=== PATIENT | male | born 1945 | race Caucasian/White ===

== ENCOUNTER 2018-10-24 18:53 | Emergency (ER) | payer MEDICARE ==
[2018-10-24] MEDS ORDERED: HYDROcodone/Acetaminophen 5/325 mg Tablet ONE (19:55)
--- NOTE | 2018-10-24 20:13 | RAD ---
Exam: Single view of the pelvis HISTORY: Right leg and hip pain COMPARISON: None FINDINGS: A single view the pelvis shows no evidence of acute fracture or dislocation. No degenerativ e changes seen in either hip. IMPRESSION: No evidence of acute osseous abnormality.
[2018-10-24 20:14] LABS: #Basophils 0.1 thou/uL (0.0-0.2); #Eosinphils 0.3 thou/uL (0.0-0.7); #Monocytes 0.5 thou/uL (0.11-0.59); #Neutrophils 3.6 thou/uL (1.40-6.50); %Basophils 0.9 % (0.0-1.0); %Eosinophils 5.2 % (0.0-10.0); %Lymphocytes 18.3 % (21.0-51.0); %Monocytes 9.2 % (0.0-10.0); %Neutrophils 66.4 % (42.0-75.0); Hemoglobin 14.3 g/dL (14.0-18.0); Mean Corpuscular HGB CONC 35.2 g/dL (32.0-36.0); Mean Corpuscular Hemoglobin 33.5 pg (27.0-31.0); Mean Corpuscular Volume 95.1 fL (78.0-98.0); Mean Platelet Volume 7.6 fL (7.4-10.4); Platelet Count 197 thou/uL (130-400); RBC Distribution Width 11.9 % (11.5-14.5); Red Blood Cell (RBC) Count 4.27 mill/uL (4.70-6.10); White Blood Cell (WBC) Count 5.5 thou/uL (4.8-10.8)
[2018-10-24 20:37] LABS: ALT (SGPT) 30 U/L (8-55); AST (SGOT) 23 U/L (5-34); Albumin 3.7 g/dL (3.4-4.8); Alkaline Phosphatase 59 U/L (40-150); Anion Gap 13 mmol/L (10-20); BUN (Urea Nitrogen) 24 mg/dL (8.4-25.7); Bilirubin, Total 0.4 mg/dL (0.2-1.2); Calc. Creatinine Clearance 0 mL/min (70-130); Calcium 8.9 mg/dL (7.8-10.44); Carbon Dioxide 23 mmol/L (23-31); Chloride 102 mmol/L (98-107); Estimated GFR-MDRD 34; Globulin 2.9 g/dL (2.4-3.5); Glucose 90 mg/dL (83-110); Potassium 3.9 mmol/L (3.5-5.1); Protein, Total 6.6 g/dL (5.8-8.1); Sodium 134 mmol/L (136-145)
--- NOTE | 2018-10-24 21:08 | ULT ---
EXAM: Right lower extremity venous ultrasound HISTORY: Right knee pain and edema COMPARISON: None TECHNIQUE: Multiplanar grayscale and color Doppler images were obtained in a right lower extremity ve nous ultrasound. Spectral analysis of the Doppler waveforms were performed. FINDINGS: The common femoral vein, profunda femoral vein, superficial femoral vein, and popliteal vei n are normal in appearance without visible thrombus. These vessels demonstrate normal compression, flow, and augmentation. The posterior tibial vein and greater saphenous vein are patent without evidence of thrombus. IMPRESSION: No evidence of DVT.
== END 2018-10-24 22:10 | disposition home or self-care (01) ==
LOC: ERS 18:53
DX: M54.31 Sciatica, right side (principal); I49.9 Cardiac arrhythmia, unspecified; I10 Essential (primary) hypertension; F41.9 Anxiety disorder, unspecified; F32.9 Major depressive disorder, single episode, unspecified; F17.220 Nicotine dependence, chewing tobacco, uncomplicated; Z79.899 Other long term (current) drug therapy
CPT/HCPCS: 36415; 72170; 80053; 85025; 85379

== ENCOUNTER 2018-11-25 15:37 | Emergency (ER) | payer MEDICARE ==
[~2018-11-25 15:37] MED LIST: ISOVUE-370 76%-LOCM 1 ML ONE
[2018-11-25] MEDS ORDERED: Ondansetron ODT 4 MG TAB ONE (16:10)
[2018-11-25 17:23] LABS: #Eosinphils 0.1 thou/uL (0.0-0.7); #Lymphocytes 0.8 thou/uL (1.20-3.40); #Monocytes 0.6 thou/uL (0.11-0.59); #Neutrophils 6.7 thou/uL (1.40-6.50); %Basophils 0.2 % (0.0-1.0); %Eosinophils 1.7 % (0.0-10.0); %Lymphocytes 9.8 % (21.0-51.0); %Neutrophils 81.4 % (42.0-75.0); Hemoglobin 15.1 g/dL (14.0-18.0); Mean Corpuscular HGB CONC 34.2 g/dL (32.0-36.0); Mean Corpuscular Hemoglobin 32.9 pg (27.0-31.0); Mean Corpuscular Volume 96.2 fL (78.0-98.0); Mean Platelet Volume 7.5 fL (7.4-10.4); Platelet Count 184 thou/uL (130-400); RBC Distribution Width 11.9 % (11.5-14.5); Red Blood Cell (RBC) Count 4.59 mill/uL (4.70-6.10); White Blood Cell (WBC) Count 8.2 thou/uL (4.8-10.8)
[2018-11-25 18:08] LABS: ALT (SGPT) 37 U/L (8-55); AST (SGOT) 33 U/L (5-34); Albumin 3.8 g/dL (3.4-4.8); Alkaline Phosphatase 59 U/L (40-110); Anion Gap 14 mmol/L (10-20); BUN (Urea Nitrogen) 17 mg/dL (8.4-25.7); Bilirubin, Total 0.5 mg/dL (0.2-1.2); Calc. Creatinine Clearance 0 mL/min (70-130); Calcium 9.3 mg/dL (7.8-10.44); Carbon Dioxide 24 mmol/L (23-31); Chloride 104 mmol/L (98-107); Estimated GFR-MDRD 45; Globulin 3.7 g/dL (2.4-3.5); Glucose 137 mg/dL (83-110); Lipase 9 U/L (8-78); Potassium 4.4 mmol/L (3.5-5.1); Protein, Total 7.5 g/dL (5.8-8.1); Sodium 138 mmol/L (136-145)
--- NOTE | 2018-11-25 18:57 | CT ---
CT Abdomen Pelvis W Con History: Abdominal pain Comparison: None. Findings: There is a nodule in the posterior segment right lower lobe measuring up to 8 mm. Mild atel ectasis in the lower lobes. No pericardial effusion. Mild proximal small bowel mesenteric edema with lymph node enlargement. The ureters are very patulous bilaterally as well as both renal pelvis by. Urinary bladder wall is ma rkedly thickened and irregular with focal thinning near the bladder dome. No dilated loops of large or small bowel. No acute osseous abnormality. Fusion of the L5/S1 disc. Tra nsverse processes are intact. Impression: 1. Moderate proximal small bowel mesenteric edema as well as lymph node enlargement is very nonspecif ic and can be seen with chronic mesenteric panniculitis, sclerosing mesenteritis, and treated lymphoma. 2. Very patulous renal collecting systems within the calyces, pelvi, and ureters enlarged with a very trabeculated thickened distended urinary bladder suggests chronic bladder outlet obstruction and reflux. 3. 8 millimeter nodule posterior segment right lower lobe. Follow-up CT of the chest in 3 months aris mmended.
[2018-11-25] MEDS ORDERED: Ondansetron PF 4 MG/2 ML Vial ONE (19:13)
== END 2018-11-25 19:20 | disposition home or self-care (01) ==
LOC: ERS 15:37
DX: E86.0 Dehydration (principal); R11.2 Nausea with vomiting, unspecified; I49.9 Cardiac arrhythmia, unspecified; I10 Essential (primary) hypertension; F41.9 Anxiety disorder, unspecified; F32.9 Major depressive disorder, single episode, unspecified; F17.220 Nicotine dependence, chewing tobacco, uncomplicated; Z79.01 Long term (current) use of anticoagulants; Z79.899 Other long term (current) drug therapy
CPT/HCPCS: 36415; 74177; 80053; 83690; 85025; 96361; 96374; J2405; Q0162; Q9966

== ENCOUNTER 2019-01-07 16:41 | Emergency (ER) | payer MEDICARE ==
[2019-01-07 17:28] LABS: #Eosinphils 0.3 thou/uL (0.0-0.7); #Lymphocytes 0.8 thou/uL (1.20-3.40); #Monocytes 0.5 thou/uL (0.11-0.59); #Neutrophils 2.6 thou/uL (1.40-6.50); %Basophils 0.8 % (0.0-1.0); %Eosinophils 6.3 % (0.0-10.0); %Monocytes 12.8 % (0.0-10.0); %Neutrophils 61.1 % (42.0-75.0); Hemoglobin 13.3 g/dL (14.0-18.0); Mean Corpuscular HGB CONC 34.3 g/dL (32.0-36.0); Mean Corpuscular Hemoglobin 32.6 pg (27.0-31.0); Mean Platelet Volume 7.3 fL (7.4-10.4); Platelet Count 161 thou/uL (130-400); RBC Distribution Width 11.9 % (11.5-14.5); White Blood Cell (WBC) Count 4.3 thou/uL (4.8-10.8)
[2019-01-07 17:52] LABS: ALT (SGPT) 25 U/L (8-55); AST (SGOT) 21 U/L (5-34); Albumin 3.5 g/dL (3.4-4.8); Alkaline Phosphatase 61 U/L (40-110); Anion Gap 9 mmol/L (10-20); BUN (Urea Nitrogen) 18 mg/dL (8.4-25.7); Bilirubin, Total 0.4 mg/dL (0.2-1.2); Calc. Creatinine Clearance 0 mL/min (70-130); Calcium 8.7 mg/dL (7.8-10.44); Carbon Dioxide 26 mmol/L (23-31); Chloride 104 mmol/L (98-107); Estimated GFR-MDRD 51; Globulin 2.8 g/dL (2.4-3.5); Glucose 114 mg/dL (83-110); Potassium 3.9 mmol/L (3.5-5.1); Protein, Total 6.3 g/dL (5.8-8.1); Sodium 135 mmol/L (136-145)
[2019-01-07] MEDS ORDERED: Meclizine HCl 25 MG TAB ONE ×2 (18:07→18:09)
--- NOTE | 2019-01-07 18:59 | CT ---
CT BRAIN NONCONTRAST: DATE: 01/07/2019 HISTORY: 73-year-old male with dizziness and lightheadedness. Status post fall. FINDINGS: There is no evidence of acute intra-axial or extra-axial hemorrhage. There is no midline shift or any other mass effect. There is no extra-axial fluid collection. There is no evidence of obstructive hydrocephalus. Calvarium is intact. IMPRESSION: No acute intracranial findings.
[2019-01-07 20:15] LABS: Bilirubin Negative (Negative); Blood, Urine Negative (Negative); Clarity Clear (Clear); Glucose, Urine (Dipstick) Normal (Negative); Leukocyte 250 Leu/uL (Negative); Nitrite 2+ (Negative); Protein, Urine (Dipstick) Negative (Neg-Trace); RBC/HPF 0-3 HPF (0-3); Squamous Epithelial 0-3 HPF (0-3); Urobilinogen Normal mg/dL (Less than 2)
[2019-01-07 20:28] LABS: Bacteria/HPF 2+ HPF (None Seen); Yeast-Budding None Seen HPF (None Seen)
== END 2019-01-07 21:00 | disposition home or self-care (01) ==
LOC: ERS 16:41
DX: H81.13 Benign paroxysmal vertigo, bilateral (principal); N39.0 Urinary tract infection, site not specified; I49.9 Cardiac arrhythmia, unspecified; I10 Essential (primary) hypertension; F41.9 Anxiety disorder, unspecified; F32.9 Major depressive disorder, single episode, unspecified; F17.220 Nicotine dependence, chewing tobacco, uncomplicated; Z79.899 Other long term (current) drug therapy; Z79.01 Long term (current) use of anticoagulants
CPT/HCPCS: 36415; 70450; 80053; 81003; 81015; 85025; 93005; 96360; 96361; J8597

== ENCOUNTER 2019-04-09 09:57 | Emergency (ER) | payer MEDICARE ==
[2019-04-09 12:20] LABS: #Eosinphils 0.2 thou/uL (0.0-0.7); #Lymphocytes 0.5 thou/uL (1.20-3.40); #Monocytes 0.6 thou/uL (0.11-0.59); %Basophils 0.4 % (0.0-1.0); %Eosinophils 3.4 % (0.0-10.0); %Lymphocytes 9.8 % (21.0-51.0); %Monocytes 11.5 % (0.0-10.0); %Neutrophils 74.9 % (42.0-75.0); Hemoglobin 12.7 g/dL (14.0-18.0); Mean Corpuscular HGB CONC 34.1 g/dL (32.0-36.0); Mean Corpuscular Hemoglobin 32.3 pg (27.0-31.0); Mean Corpuscular Volume 94.7 fL (78.0-98.0); Mean Platelet Volume 7.6 fL (7.4-10.4); Platelet Count 144 thou/uL (130-400); RBC Distribution Width 12.5 % (11.5-14.5); Red Blood Cell (RBC) Count 3.95 mill/uL (4.70-6.10); White Blood Cell (WBC) Count 5.3 thou/uL (4.8-10.8)
--- NOTE | 2019-04-09 12:23 | RAD ---
XR Chest Pa Lat STANDARD HISTORY: Cough, congestion and headache COMPARISON: None FINDINGS: The heart size is normal. The lungs are well expanded without focal areas of consolidation, pneumothorax or pleural effusions. IMPRESSION: No radiographic evidence of acute cardiopulmonary process.
[2019-04-09 12:42] LABS: ALT (SGPT) 17 U/L (8-55); AST (SGOT) 16 U/L (5-34); Albumin 3.6 g/dL (3.4-4.8); Alkaline Phosphatase 61 U/L (40-110); Anion Gap 10 mmol/L (10-20); BUN (Urea Nitrogen) 22 mg/dL (8.4-25.7); Bilirubin, Total 0.4 mg/dL (0.2-1.2); Calc. Creatinine Clearance 0 mL/min (70-130); Calcium 8.8 mg/dL (7.8-10.44); Carbon Dioxide 28 mmol/L (23-31); Chloride 105 mmol/L (98-107); Estimated GFR-MDRD 44; Globulin 2.7 g/dL (2.4-3.5); Glucose 86 mg/dL (83-110); Potassium 4.1 mmol/L (3.5-5.1); Protein, Total 6.3 g/dL (5.8-8.1); Sodium 139 mmol/L (136-145)
== END 2019-04-09 12:46 | disposition home or self-care (01) ==
LOC: ERS 09:57
DX: R05 Cough (principal); I10 Essential (primary) hypertension; F41.9 Anxiety disorder, unspecified; F32.9 Major depressive disorder, single episode, unspecified; F17.220 Nicotine dependence, chewing tobacco, uncomplicated; Z79.01 Long term (current) use of anticoagulants; Z79.82 Long term (current) use of aspirin; Z79.899 Other long term (current) drug therapy
CPT/HCPCS: 36415; 71046; 80053; 85025; 87804

== ENCOUNTER 2019-11-01 13:33 | Inpatient (IN) | payer MEDICARE, MEDICAID, OTHER ==
[2019-10-29 15:06] VITALS: BMI 31.5
[2019-11-01 15:01] LABS: Bacteria/HPF 4+ HPF (None Seen); Bilirubin Negative (Negative); Blood, Urine Negative (Negative); Clarity Turbid (Clear); Glucose, Urine (Dipstick) Normal (Negative); Ketone, Urine Negative (Negative); Leukocyte 250 Leu/uL (Negative); Nitrite Negative (Negative); Protein, Urine (Dipstick) 10 mg/dL (Neg-Trace); RBC/HPF 0-3 HPF (0-3); Squamous Epithelial None Seen HPF (0-3); Urobilinogen Normal mg/dL (Less than 2); WBC/HPF Greater than 50 HPF (0-3); pH, Urine 7.5 (5.0-9.0)
[2019-11-01 15:02] LABS: #Eosinphils 0.2 thou/uL (0.0-0.7); #Lymphocytes 0.8 thou/uL (1.20-3.40); #Monocytes 0.5 thou/uL (0.11-0.59); #Neutrophils 3.1 thou/uL (1.40-6.50); %Eosinophils 4.8 % (0.0-10.0); %Monocytes 11.3 % (0.0-10.0); Hemoglobin 13.7 g/dL (14.0-18.0); Mean Corpuscular HGB CONC 33.6 g/dL (32.0-36.0); Mean Corpuscular Volume 98.1 fL (78.0-98.0); Mean Platelet Volume 8.6 fL (7.4-10.4); Platelet Count 151 thou/uL (130-400); RBC Distribution Width 11.9 % (11.5-14.5); Red Blood Cell (RBC) Count 4.15 mill/uL (4.70-6.10); White Blood Cell (WBC) Count 4.6 thou/uL (4.8-10.8)
[2019-11-01 15:03] LABS: Urine Culture Reflex Yes Yes
--- NOTE | 2019-11-01 15:27 | EKG ---
Test Reason : PREOP Blood Pressure : / mmHG Vent. Rate : 057 BPM Atrial Rate : 057 BPM P-R Int : 236 ms QRS Dur : 088 ms QT Int : 472 ms P-R-T Axes : 023 028 062 degrees QTc Int : 459 ms Sinus bradycardia with 1st degree A-V block Otherwise normal ECG No previous ECGs available Confirmed by JAIMEE MARIE M.D. ([id number] on 11/01/2019 3:27:28 PM Referred By: SEB Confirmed By:JAIMEE MARIE M.D.
[2019-11-01 15:43] LABS: Bacteria/HPF 4+ HPF (None Seen); Bilirubin Negative (Negative); Blood, Urine Negative (Negative); Clarity Turbid (Clear); Glucose, Urine (Dipstick) Normal (Negative); Ketone, Urine Negative (Negative); Leukocyte 500 Leu/uL (Negative); Nitrite Negative (Negative); Protein, Urine (Dipstick) Negative (Neg-Trace); RBC/HPF 0-3 HPF (0-3); Specific Gravity, Urine 1.008 (1.002-1.036); Squamous Epithelial 0-3 HPF (0-3); Urobilinogen Normal mg/dL (Less than 2); WBC/HPF Greater than 50 HPF (0-3); pH, Urine 7.5 (5.0-9.0)
[2019-11-01 15:44] LABS: Urine Culture Reflex Yes Yes
[2019-11-01] MEDS ORDERED: Bupivacaine PF 0.5% 30 ML VIAL ONE (16:13)
[2019-11-01] MEDS ORDERED: Bacitracin Zinc Ointment 30 gm TUBE ONE (16:13)
[2019-11-01] MEDS ORDERED: Fentanyl 100 MCG/2 ML VIAL ONE (16:35)
[2019-11-01] MEDS ORDERED: HYDROcodone/Acetaminophen 5/325 mg Tablet PO PRN (18:09)
[2019-11-01] MEDS ORDERED: Acetaminophen 325 MG TAB PO PRN (18:09)
[2019-11-01] MEDS ORDERED: Morphine 2 MG/ML VIAL SLOW IVP PRN (18:09)
[2019-11-01] MEDS ORDERED: Bisacodyl 10 MG SUPP PR PRN (18:09)
[2019-11-01] MEDS ORDERED: Vancomycin 1 GM in Premix Bag 1 BAG IVPB SCH (20:15)
[2019-11-01] MEDS: HYDROcodone/Acetaminophen 10/325 mg Tablet PO PRN (20:30)
[2019-11-01] MEDS: Aspirin 81 mg Enteric Coated Tablet PO SCH (20:32)
[2019-11-01] MEDS ORDERED: Gentamicin Sulfate 80 MG in Premix Bag 1 BAG IVPB SCH ×2 (20:45→22:45)
[2019-11-01] MEDS ORDERED: TETANUS AND DIPHTHERIA TOX/PF 0.5 ML DISP.SYRIN IM SCH (21:00)
[2019-11-01] MEDS: Sodium Chloride 0.9% 1,000 ML IV SCH (23:38)
[2019-11-01] MEDS: Sodium Chloride 0.9% 100 ML IV SCH ×2 (23:49→23:50)
[2019-11-02] MEDS: HYDROcodone/Acetaminophen 10/325 mg Tablet PO PRN ×3 (01:07→23:09)
[2019-11-02 05:46] LABS: Anion Gap 15 mmol/L (10-20); BUN (Urea Nitrogen) 22 mg/dL (8.4-25.7); Calc. Creatinine Clearance 51 mL/min (70-130); Calcium 8.4 mg/dL (7.8-10.44); Carbon Dioxide 22 mmol/L (23-31); Chloride 106 mmol/L (98-107); Estimated GFR-MDRD 38; Glucose 124 mg/dL (83-110); Potassium 4.8 mmol/L (3.5-5.1); Sodium 138 mmol/L (136-145)
[2019-11-02] MEDS: Gentamicin Sulfate 80 MG in Premix Bag 1 BAG IVPB SCH ×3 (06:00→20:41)
[2019-11-02] MEDS ORDERED: Vancomycin 1 GM in Premix Bag 1 BAG IVPB SCH (08:00)
[2019-11-02] MEDS: Aspirin 81 mg Enteric Coated Tablet PO SCH ×2 (08:22→20:40)
[2019-11-02] MEDS: Sodium Chloride 0.9% 1,000 ML IV SCH ×2 (08:45→18:59)
[2019-11-02 08:58] LABS: Bacteria/HPF 2+ HPF (None Seen); Bilirubin Negative (Negative); Blood, Urine 2+ (Negative); Clarity Extra Turbid (Clear); Glucose, Urine (Dipstick) Normal (Negative); Ketone, Urine Negative (Negative); Leukocyte 500 Leu/uL (Negative); Nitrite Negative (Negative); Protein, Urine (Dipstick) 50 mg/dL (Neg-Trace); RBC/HPF 21-50 HPF (0-3); Specific Gravity, Urine 1.009 (1.002-1.036); Squamous Epithelial None Seen HPF (0-3); Urobilinogen Normal mg/dL (Less than 2); WBC/HPF Greater than 50 HPF (0-3); pH, Urine 6.5 (5.0-9.0)
[2019-11-02] MEDS ORDERED: PROPOFOL 200 MG/20 ML VIAL ONE (09:01)
[2019-11-02] MEDS ORDERED: Lidocaine 1% PF 5 ML VIAL ONE (09:01)
[2019-11-02] MEDS ORDERED: PHENYLEPHRINE-NS 100 MCG/ML 10 ML SYRINGE ONE (09:01)
[2019-11-02] MEDS ORDERED: Dexamethasone 20 MG/5 ML VIAL ONE (09:01)
[2019-11-02] MEDS ORDERED: EPHEDRINE 25 MG/5 ML SYRINGE ONE (09:01)
[2019-11-02] MEDS ORDERED: Fentanyl 100 MCG/2 ML VIAL ONE ×2 (13:30)
[2019-11-02] MEDS ORDERED: Bupivacaine PF 0.5% 30 ML VIAL ONE (13:47)
[2019-11-02] MEDS ORDERED: Bacitracin Zinc Ointment 30 gm TUBE ONE (13:47)
[2019-11-02] MEDS ORDERED: Sodium Chloride 0.9% 10 ML ONE (13:48)
[2019-11-02] MEDS ORDERED: cefTRIAXone\\ROCEPHIN 1 GM VIAL ONE (14:46)
--- NOTE | 2019-11-02 17:47 | RAD ---
EXAM: RIGHT FINGER TWO VIEWS: 11/02/19 HISTORY: Status post ORIF. Small metal plate and screws have been placed stabilizing a displaced fracture through the base of th e distal phalanx of the fourth finger. Improved position and alignment. IMPRESSION: Improved position and alignment following metal plate and screw placement stabilizing the distal phal anx displaced fracture of the fourth finger. POS: OFF
[2019-11-02] MEDS: Ciprofloxacin 500 MG TAB PO SCH (20:40)
[2019-11-02] MEDS: Doxycycline 100 MG CAP PO SCH (20:40)
[2019-11-02] MEDS ORDERED: Latanoprost 0.005% Ophth Soln 2.5 ml Bottle EA EYE SCH (23:59)
[2019-11-02] MEDS ORDERED: Docusate 100 MG CAP PO SCH (23:59)
[2019-11-03] MEDS: Sodium Chloride 0.9% 1,000 ML IV SCH ×2 (02:07→13:30)
[2019-11-03] MEDS: Ciprofloxacin 500 MG TAB PO SCH (05:16)
[2019-11-03] MEDS: Doxycycline 100 MG CAP PO SCH (08:22)
[2019-11-03] MEDS: Aspirin 81 mg Enteric Coated Tablet PO SCH (08:22)
[2019-11-03 08:58] LABS: Bilirubin Negative (Negative); Blood, Urine Trace (Negative); Clarity Turbid (Clear); Glucose, Urine (Dipstick) Normal (Negative); Ketone, Urine Negative (Negative); Leukocyte 500 Leu/uL (Negative); Nitrite Negative (Negative); Protein, Urine (Dipstick) 10 mg/dL (Neg-Trace); Squamous Epithelial None Seen HPF (0-3); Urobilinogen Normal mg/dL (Less than 2); WBC/HPF Greater than 50 HPF (0-3); pH, Urine 6.5 (5.0-9.0)
[2019-11-03] MEDS ORDERED: Docusate 100 MG CAP PO SCH (09:00)
[2019-11-03] MEDS ORDERED: Lisinopril 10 MG TAB PO SCH (09:00)
[2019-11-03] MEDS ORDERED: Apixaban 5 MG TAB PO SCH (09:00)
[2019-11-03] MEDS ORDERED: Brimonidine Tartrate 0.2% Ophth Soln 5 ml Bottle EA EYE SCH (09:00)
[2019-11-03] MEDS ORDERED: Amiodarone 200 MG TAB PO SCH (09:00)
[2019-11-03 09:06] LABS: Bacteria/HPF 1+ HPF (None Seen)
[2019-11-03] MEDS: HYDROcodone/Acetaminophen 10/325 mg Tablet PO PRN (10:05)
[2019-11-03 16:40] VITALS: BP 117/66; TEMP 98
--- NOTE | 2019-11-03 19:16 | DIS ---
DATE OF ADMISSION: 11/01/2019 DATE OF DISCHARGE: 11/03/2019 ADMISSION DIAGNOSES: 1. Fracture, base of proximal phalanx with dislocation of the joint, a Adrianna and Paste Mixing Supervisor type 4 Rugger-[place]sey pattern, but not from sports. 2. Osteoporosis/osteopenia. 3. Chronic urinary retention with patient self caths. 4. Urinary tract infection with E coli. HOSPITAL COURSE: Patient, who presented with a complex fracture pattern at the base of proximal phalanx of his ring finger on the right side, which was already approximately 14 days old on presentation, had a florid UTI on preoperative evaluation. For this reason, surgery was delayed 36 hours, placed him on IV antibiotics. His initial urine sample showed 4+ bacteria. It was turbid and a day later it grew from cath specimen E coli. After his urine was sterilized and the bacterial count decreased greatly, he went to the operating room, had appropriate IV antibiotics overnight and also got preoperative antibiotics and underwent the open reduction internal fixation. We had a Shari-type suture and repaired the flexor tendon and helped to reduce the bone as well as dislocation and placed a buttress plate with 2 screws proximal to the fracture and one distal. He maintained his circulation throughout the entire postop period. The digit was pink with minimal swelling at the end of procedure. His pain on the day of discharge was greatly controlled at 2/10 to 3/10 and used pills for control. He had been treated with IV antibiotics, including gentamicin for urinary tract infection , began oral Cipro and Bactrim prior to discharge. DISCHARGE DIAGNOSES: 1. Fracture, base of proximal phalanx with dislocation of the joint, a Adrianna and P[employer] Mixing Supervisor type 4 Rugger-[place]sey pattern, but not from sports. 2. Osteoporosis/osteopenia. 3. Chronic urinary retention with patient self caths. 4. Urinary tract infection with E coli. DISCHARGE PLAN: The patient will be on 10 days of Cipro and Bactrim in combination, he will also be given some 7.5/325 [place] tablets and will follow up with us in clinic in 1 week. DIET: Will be regular. Job ID: [id number]
[2019-11-03] MEDS ORDERED: Latanoprost 0.005% Ophth Soln 2.5 ml Bottle EA EYE SCH (21:00)
[2019-11-03] MEDS ORDERED: Atorvastatin Calcium 10 MG TAB PO SCH (21:00)
[2019-11-03] MEDS ORDERED: Lorazepam 1 MG TAB PO SCH (21:00)
--- NOTE | 2019-11-05 05:28 | OP ---
DATE OF PROCEDURE: 11/02/2019 PREOPERATIVE DIAGNOSIS: Fracture dislocation, distal phalanx base, comminuted with flexor tendon involvement. POSTOPERATIVE DIAGNOSIS: Partial laceration of flexor tendon, approximately 40% from the bone fragment at the base with complex intra-articular fracture and dislocation. PROCEDURES PERFORMED: 1. Open reduction and internal fixation of distal phalanx intra-articular fracture. 2. Flexor digitorum profundus repair. 3. Open treatment of dislocation. ANESTHESIA: General LMA. TOURNIQUET TIME: 103 minutes. INDICATIONS: The patient with almost 2-week-old fracture this delayed the presentation and initially delayed the date of surgery, one day prior to this, because of overwhelming urinary tract infection. He was treated with 30 hours of IV antibiotics, which partially resolved his bacteremia and allowed us to give him a better chance of reducing his risk of problems, but because of the length of time, dislocation and fragmentation, we felt that this might be the best shot to try to achieve any normalization in this person with obvious osteoporotic bone. DESCRIPTION OF PROCEDURE: After successful general endotracheal anesthesia, the limb was prepped and draped. was brought to the field, we did a time-out, confirmed it was the ring finger and then we exsanguinated the limb and inflated tourniquet to 250 mm mmHg pressure. Next, a curvilinear incision was made beginning 5 mm proximal to the most distal end of the phalanx avoiding the central and then extended proximal to the volar DIP joint flexion crease via Kareem incision. We carried through skin and subcutaneous tissue until we identified the neurovascular bundles on both sides. We then slowly did the neuroplasty to free it from the center of the field. It was here that we saw the three part fracture where the fragment containing the flexor tendon was pulled up against the A4 sara. We then irrigated the fracture, simply with a Colvin, removed the hematoma on both sides, and then visualized the proximal fragment. It was a moderately comminuted fracture with a potential split. For this reason, and because the flexor tendon was partially avulsed from the most radial piece, we then passed a heavy Prolene suture in a [place] type stitch through a hole 7 mm of the tendon and then brought that out distal end of the bone. This allowed us to have some reduction force after. We then drilled at a 40-degree angle through the very proximal end of the distal fragment, two Eagle needles. Then, we slowly flexed the digit and brought the fragment into better apposition and then this allowed us to reduce the dislocation. We then kept the digit flexed at 45 degrees and tied this until now we had partially reduced fracture. We then gently reduced the fracture, measured a 1.3 plate from the Synthes variable angle handset, and cut it to fit. We placed it in the sliding slot, we made our first screw, modified it based on C-arm to help make a buttress effect, and then with anatomic sagittal plane, began the screw fixation. The second screw, there was some comminution of the fracture fragment, but the screw had purchase, avoided the joint and it was less than 0.5 mm separation. No step-off and the fragment remained stable. We then released the tourniquet, saw the neurovascular bundle to be intact because the digit was pink and had good circulation, obtained hemostasis, and closed the wound with interrupted 5-0 nylon in simple pattern. The patient had a bulky dressing applied, the digit was in approximately 20 degrees of PIP joint flexion, the DIP joint was approximately 40 degrees of flexion and a dorsal block splint was applied. He left the operating room without evidence of anesthetic or operative complication. Job ID: [id number]
== END 2019-11-03 18:00 | disposition home or self-care (01) | DRG 513 ==
LOC: SDC 13:33 → SJJU 17:06
PROVIDERS: ADMIT Orthopaedic Surgery Hand Surgery; ATTEND Orthopaedic Surgery Hand Surgery
PROC: 0PST04Z Reposition Right Finger Phalanx with Internal Fixation Device, Open Approach (ICD-10-PCS; principal; 2019-11-02)
PROC: 0LQ70ZZ Repair Right Hand Tendon, Open Approach (ICD-10-PCS; 2019-11-02)
DX: S62.639A Displaced fracture of distal phalanx of unspecified finger, initial encounter for closed fracture (principal); S66.124A Laceration of flexor muscle, fascia and tendon of right ring finger at wrist and hand level, initial encounter; N39.0 Urinary tract infection, site not specified; Z20.828 Contact with and (suspected) exposure to other viral communicable diseases; X58.XXXA Exposure to other specified factors, initial encounter; B96.20 Unspecified Escherichia coli [E. coli] as the cause of diseases classified elsewhere; R33.9 Retention of urine, unspecified; M81.0 Age-related osteoporosis without current pathological fracture; M85.80 Other specified disorders of bone density and structure, unspecified site
CPT/HCPCS: 36415; 76000; 80048; 81001; 81003; 81015; 85025; 87077; 87086; 87186; 87635; 93005; 93010; J0690; J0696; J1100; J1580; J2704; J3010; J3370; J3490; S0020; U0003

== ENCOUNTER 2020-02-14 08:46 | Outpatient (CLI) | payer MEDICARE, MEDICAID ==
[2020-02-14] MEDS ORDERED: Iopamidol 370 76% 100 ML VIAL ONE (09:26)
--- NOTE | 2020-02-14 10:14 | CT ---
EXAM: CTA of the chest HISTORY: Shortness of breath. Atrial fibrillation. COMPARISON: CT abdomen/pelvis 12/05/2019 TECHNIQUE: Multiple contiguous axial images were obtained a CTA of the chest with contrast per pulmon elizabeth embolism protocol. 3-D oblique MIP reformats and direct coronal reformats were performed. FINDINGS: HEART: Normal in size without focal cardiac abnormality. There is an atrial appendage occlusive devic e in good position without contrast behind the occlusive device. PULMONARY ARTERIES: Normal in caliber without filling defects to suggest pulmonary emboli. MEDIASTINUM: No hilar or mediastinal lymphadenopathy. There are calcified right hilar and mediastinal lymph nodes. LUNGS: Dependent scattered opacities are seen in the bilateral upper lobes and lower lobes peripheral ly. A calcified granuloma is seen in the right lung base. A calcified granuloma seen in the lingula. PLEURAL SPACE: No pleural effusion or pneumothorax. CHEST WALL SOFT TISSUES: Unremarkable VISUALIZED OSSEOUS STRUCTURES: Degenerative changes in the spine. VISUALIZED SUBDIAPHRAGMATIC STRUCTURES: The kidneys are lobulated in appearance with areas of cortica l scarring. Stable increased density of the small bowel mesentery is seen in the upper abdomen. IMPRESSION: 1. No evidence of pulmonary thromboembolism 2. Appropriate occlusion of atrial appendage 3. Peripheral dependent opacities in lungs may represent atelectasis. Covid pneumonia cannot be exclu ded.
== END 2020-02-14 08:47 | disposition home or self-care (01) ==
LOC: BICCT 08:46
PROVIDERS: ATTEND Internal Medicine Cardiovascular Disease
DX: I48.91 Unspecified atrial fibrillation (principal); R06.02 Shortness of breath; R91.8 Other nonspecific abnormal finding of lung field
CPT/HCPCS: 71275; 82565; Q9967

== ENCOUNTER 2020-02-25 10:33 | Outpatient (CLI) | payer MEDICARE, MEDICAID ==
[2020-02-25 14:10] LABS: Hemoglobin 13.2 g/dL (14.0-18.0); Mean Corpuscular HGB CONC 32.3 G/DL (32.0-36.0); Mean Corpuscular Hemoglobin 30.6 PG (27.0-33.0); Mean Corpuscular Volume 94.9 fl (80.0-100.0); Mean Platelet Volume 10.4 fl (7.4-10.4); Platelet Count 203 10x3/uL (130-400); RBC Distribution Width 13.5 % (11.5-14.5); Red Blood Cell (RBC) Count 4.31 10x6/uL (4.40-5.80); White Blood Cell (WBC) Count 4.4 10x3/uL (4.5-11.0)
[2020-02-25 14:26] LABS: INR-International Normal Ratio 1.1; PTT 32.9 sec (22.0-33.0)
[2020-02-25 14:31] LABS: Anion Gap 12 mmol/L (10-20); BUN (Urea Nitrogen) 17 mg/dL (8.4-25.7); Calc. Creatinine Clearance 0 mL/min (70-130); Calcium 8.7 mg/dL (7.8-10.44); Carbon Dioxide 27 mmol/L (23-31); Chloride 102 mmol/L (98-107); Glucose 99 mg/dL (83-110); Potassium 4.3 mmol/L (3.5-5.1); Sodium 137 mmol/L (136-145)
== END 2020-02-25 10:34 | disposition home or self-care (01) ==
LOC: LABBT 10:33
PROVIDERS: ATTEND Internal Medicine Cardiovascular Disease
DX: Z01.818 Encounter for other preprocedural examination (principal); I48.91 Unspecified atrial fibrillation
CPT/HCPCS: 80048; 85027; 85610; 85730; 93005; 93010

== ENCOUNTER 2020-03-01 09:53 | Day surgery (SDC) | payer MEDICARE, MEDICAID ==
[2020-02-28 15:35] VITALS: BMI 33.2
[2020-03-01] MEDS ORDERED: PROPOFOL 20 ML ONE (10:30)
--- NOTE | 2020-03-01 19:42 | OP ---
DATE OF PROCEDURE: 03/01/2020 PROCEDURE PERFORMED: Electrical cardioversion. REASON FOR PROCEDURE: Mr. Bashir is a 74-year-old man with history of persistent atrial fibrillation, post pulmonary venous isolation on 12/24/2019 including isolation of left atrial appendage. He has a Watchman implanted on 12/24/2019. He developed recurrence of atrial fibrillation, but has been well anticoagulated here for a planned cardioversion. DESCRIPTION OF PROCEDURE: The patient received propofol by Anesthesia specialist. After adequate level of sedation achieved, a synchronized 200-joule shock promptly converted the patient back to sinus rhythm. The return rhythm was sinus in the 57 beats per minute. The patient tolerated the procedure well. No complications. PLAN: Continue amiodarone and also continue anticoagulation. We will have CT performed, evaluated by Dr. King and can consider discontinuing Eliquis and switch him to Plavix if the Watchman device is well sealed. Job ID: [id number]
== END 2020-03-01 14:25 | disposition home or self-care (01) ==
LOC: CCL 09:53
PROVIDERS: ATTEND Internal Medicine Cardiovascular Disease
PROC: 5A2204Z Restoration of Cardiac Rhythm, Single (ICD-10-PCS; principal; 2020-03-01)
DX: I48.19 Other persistent atrial fibrillation (principal); I12.9 Hypertensive chronic kidney disease with stage 1 through stage 4 chronic kidney disease, or unspecified chronic kidney disease; N18.9 Chronic kidney disease, unspecified; G47.33 Obstructive sleep apnea (adult) (pediatric); Z79.01 Long term (current) use of anticoagulants; Z79.82 Long term (current) use of aspirin; Z79.899 Other long term (current) drug therapy; M19.90 Unspecified osteoarthritis, unspecified site; E03.9 Hypothyroidism, unspecified; E78.5 Hyperlipidemia, unspecified
CPT/HCPCS: 92960; 93005; 93010; J2704

== ENCOUNTER 2020-04-25 10:51 | Outpatient (CLI) | payer MEDICARE, MEDICAID | END 2020-04-25 10:52 | disposition home or self-care (01) | LOC: BICRAD 10:51 | PROVIDERS: ATTEND Specialist | DX: R91.1 Solitary pulmonary nodule (principal) | CPT/HCPCS: 71046 ==

== ENCOUNTER 2020-05-11 19:41 | Emergency (ER) | payer MEDICARE, MEDICAID ==
[2020-05-11 20:14] LABS: #Eosinphils 0.3 thou/uL (0.0-0.7); #Lymphocytes 0.7 thou/uL (1.20-3.40); #Monocytes 0.6 thou/uL (0.11-0.59); #Neutrophils 4.9 thou/uL (1.40-6.50); %Basophils 0.1 % (0.0-1.0); %Eosinophils 4.4 % (0.0-10.0); %Monocytes 9.3 % (0.0-10.0); %Neutrophils 76.2 % (42.0-75.0); Mean Corpuscular HGB CONC 34.3 g/dL (32.0-36.0); Mean Corpuscular Hemoglobin 32.8 pg (27.0-31.0); Mean Corpuscular Volume 95.5 fL (78.0-98.0); Mean Platelet Volume 8.4 fL (7.4-10.4); Platelet Count 134 thou/uL (130-400); RBC Distribution Width 13.5 % (11.5-14.5); Red Blood Cell (RBC) Count 4.26 mill/uL (4.70-6.10); White Blood Cell (WBC) Count 6.5 thou/uL (4.8-10.8)
[2020-05-11 20:36] LABS: ALT (SGPT) 27 U/L (8-55); AST (SGOT) 20 U/L (5-34); Alkaline Phosphatase 72 U/L (40-110); Anion Gap 16 mmol/L (10-20); BUN (Urea Nitrogen) 32 mg/dL (8.4-25.7); Bilirubin, Total 0.5 mg/dL (0.2-1.2); Calc. Creatinine Clearance 0 mL/min (70-130); Calcium 8.7 mg/dL (7.8-10.44); Carbon Dioxide 26 mmol/L (23-31); Chloride 100 mmol/L (98-107); Globulin 2.9 g/dL (2.4-3.5); Glucose 106 mg/dL (83-110); Lipase 24 U/L (8-78); Potassium 4.5 mmol/L (3.5-5.1); Protein, Total 6.9 g/dL (5.8-8.1); Sodium 137 mmol/L (136-145)
[2020-05-11 22:00] LABS: Bacteria/HPF 4+ HPF (None Seen); Bilirubin Negative (Negative); Blood, Urine 3+ (Negative); Clarity Clear (Clear); Glucose, Urine (Dipstick) Normal (Negative); Ketone, Urine Negative (Negative); Leukocyte 250 Leu/uL (Negative); Nitrite 2+ (Negative); Protein, Urine (Dipstick) Negative (Neg-Trace); RBC/HPF Greater than 50 HPF (0-3); Specific Gravity, Urine 1.013 (1.002-1.036); Squamous Epithelial None Seen HPF (0-3); Urobilinogen Normal mg/dL (Less than 2); WBC/HPF Greater than 50 HPF (0-3)
[2020-05-11 22:06] LABS: Troponin I Less than 0.010 ng/mL (< 0.028)
== END 2020-05-11 23:50 | disposition home or self-care (01) ==
LOC: ERS 19:41
DX: R07.9 Chest pain, unspecified (principal); N39.0 Urinary tract infection, site not specified; E03.9 Hypothyroidism, unspecified; E78.5 Hyperlipidemia, unspecified; F17.220 Nicotine dependence, chewing tobacco, uncomplicated; Z79.899 Other long term (current) drug therapy; Z79.82 Long term (current) use of aspirin
CPT/HCPCS: 36415; 71045; 80053; 81001; 83690; 84484; 85025; 93005

== ENCOUNTER 2020-05-21 14:47 | Inpatient (IN) | payer MEDICARE, MEDICAID ==
[2020-05-21] MEDS ORDERED: Nitroglycerin 2% Ointment 1 INCH/1 GM Packet ONE (15:19)
[2020-05-21] MEDS ORDERED: Aspirin Chewable 81 MG TAB ONE (15:19)
[2020-05-21 15:26] LABS: #Eosinphils 0.2 thou/uL (0.0-0.7); #Lymphocytes 1.1 thou/uL (1.20-3.40); #Monocytes 0.6 thou/uL (0.11-0.59); #Neutrophils 4.7 thou/uL (1.40-6.50); %Basophils 0.7 % (0.0-1.0); %Eosinophils 3.6 % (0.0-10.0); %Lymphocytes 16.6 % (21.0-51.0); %Monocytes 9.2 % (0.0-10.0); Hemoglobin 15.1 g/dL (14.0-18.0); Mean Corpuscular HGB CONC 34.1 g/dL (32.0-36.0); Mean Corpuscular Hemoglobin 32.5 pg (27.0-31.0); Mean Corpuscular Volume 95.3 fL (78.0-98.0); Mean Platelet Volume 8.5 fL (7.4-10.4); Platelet Count 174 thou/uL (130-400); RBC Distribution Width 13.5 % (11.5-14.5); Red Blood Cell (RBC) Count 4.64 mill/uL (4.70-6.10); White Blood Cell (WBC) Count 6.7 thou/uL (4.8-10.8)
[2020-05-21 15:48] LABS: ALT (SGPT) 34 U/L (8-55); AST (SGOT) 24 U/L (5-34); Albumin 4.2 g/dL (3.4-4.8); Alkaline Phosphatase 67 U/L (40-110); Anion Gap 16 mmol/L (10-20); BUN (Urea Nitrogen) 36 mg/dL (8.4-25.7); Bilirubin, Total 0.3 mg/dL (0.2-1.2); Calc. Creatinine Clearance 0 mL/min (70-130); Calcium 9.4 mg/dL (7.8-10.44); Carbon Dioxide 22 mmol/L (23-31); Chloride 103 mmol/L (98-107); Globulin 3.6 g/dL (2.4-3.5); Glucose 109 mg/dL (83-110); Potassium 5.3 mmol/L (3.5-5.1); Protein, Total 7.8 g/dL (5.8-8.1); Sodium 136 mmol/L (136-145)
[2020-05-21 18:39] LABS: Troponin I 0.017 ng/mL (< 0.028)
[2020-05-21] MEDS ORDERED: traMADol HCl 50 MG TAB PO PRN (18:40)
[2020-05-21] MEDS ORDERED: Acetaminophen 325 MG TAB PO PRN ×2 (18:40→18:45)
[2020-05-21] MEDS ORDERED: Dextrose 50% Abboject 50 ML SYRINGE IVP PRN (18:45)
[2020-05-21] MEDS ORDERED: Ondansetron ODT 4 MG TAB SL PRN (18:45)
[2020-05-21] MEDS ORDERED: Dextrose 5% in Water 1,000 ML IV PRN (18:45)
[2020-05-21] MEDS ORDERED: Ondansetron PF 4 MG/2 ML Vial IVP PRN (18:45)
[2020-05-21] MEDS ORDERED: Insulin Regular 300 UNITS/3 ML VIAL SC PRN (18:45)
[2020-05-21] MEDS ORDERED: Lactated Ringer's 1,000 ML IV SCH (18:45)
[2020-05-21] MEDS: Brimonidine Tartrate 0.2% Ophth Soln 5 ml Bottle EA EYE SCH ×2 (21:00→21:05)
[2020-05-21] MEDS: Latanoprost 0.005% Ophth Soln 2.5 ml Bottle EA EYE SCH (21:00)
[2020-05-21] MEDS: Sodium Chloride 0.45% 1,000 ML IV SCH (21:01)
[2020-05-21] MEDS: Apixaban 2.5 MG TAB PO SCH (21:01)
[2020-05-21] MEDS: Citalopram 20 MG TAB PO SCH (21:01)
[2020-05-21 21:20] VITALS: BMI 32.7
[2020-05-21 21:51] LABS: Troponin I Less than 0.010 ng/mL (< 0.028)
[2020-05-21 21:53] LABS: Bacteria/HPF None Seen HPF (None Seen); Bilirubin Negative (Negative); Blood, Urine Negative (Negative); Clarity Clear (Clear); Glucose, Urine (Dipstick) >=1000 mg/dL (Negative); Ketone, Urine Negative (Negative); Leukocyte Negative Leu/uL (Negative); Nitrite Negative (Negative); Protein, Urine (Dipstick) Negative (Neg-Trace); RBC/HPF 0-3 HPF (0-3); Specific Gravity, Urine 1.011 (1.002-1.036); Squamous Epithelial None Seen HPF (0-3); Urobilinogen Normal mg/dL (Less than 2); WBC/HPF 0-3 HPF (0-3); pH, Urine 6.5 (5.0-9.0)
[2020-05-21 21:58] LABS: Urine Culture Reflex No No
[2020-05-22 00:24] LABS: SARS-CoV-2 PCR by NAA Not Detected (NotDetected)
[2020-05-22 05:07] LABS: #Eosinphils 0.4 thou/uL (0.0-0.7); #Lymphocytes 1.2 thou/uL (1.20-3.40); #Monocytes 0.8 thou/uL (0.11-0.59); #Neutrophils 4.1 thou/uL (1.40-6.50); %Basophils 0.7 % (0.0-1.0); %Eosinophils 5.4 % (0.0-10.0); %Lymphocytes 17.8 % (21.0-51.0); Hemoglobin 13.8 g/dL (14.0-18.0); Mean Corpuscular HGB CONC 33.9 g/dL (32.0-36.0); Mean Corpuscular Hemoglobin 32.2 pg (27.0-31.0); Mean Corpuscular Volume 95.1 fL (78.0-98.0); Mean Platelet Volume 8.2 fL (7.4-10.4); Platelet Count 141 thou/uL (130-400); RBC Distribution Width 13.5 % (11.5-14.5); Red Blood Cell (RBC) Count 4.27 mill/uL (4.70-6.10); White Blood Cell (WBC) Count 6.5 thou/uL (4.8-10.8)
[2020-05-22] MEDS: Sodium Chloride 0.45% 1,000 ML IV SCH ×3 (05:13→20:04)
[2020-05-22 05:29] LABS: Anion Gap 15 mmol/L (10-20); BUN (Urea Nitrogen) 34 mg/dL (8.4-25.7); Calc. Creatinine Clearance 47 mL/min (70-130); Calcium 8.8 mg/dL (7.8-10.44); Carbon Dioxide 19 mmol/L (23-31); Cardiac Risk 4.2 (Less than 4.5); Chloride 104 mmol/L (98-107); Cholesterol 146 mg/dl (< 200 Desired); Glucose 100 mg/dL (83-110); HDL Cholesterol 35 mg/dL (>60 Neg Risk); LDL Cholesterol, Calculated 85 mg/dL; Potassium 5.1 mmol/L (3.5-5.1); Sodium 133 mmol/L (136-145); Triglycerides 129 mg/dL (Less than 150)
[2020-05-22] MEDS: Brimonidine Tartrate 0.2% Ophth Soln 5 ml Bottle EA EYE SCH ×2 (07:48→20:08)
[2020-05-22] MEDS: Amiodarone 200 MG TAB PO SCH (07:48)
[2020-05-22] MEDS: Aspirin Chewable 81 MG TAB PO SCH (07:48)
[2020-05-22] MEDS: Apixaban 2.5 MG TAB PO SCH (07:49)
[2020-05-22] MEDS ORDERED: Regadenoson 0.4 MG/5 ML SYRINGE ONE (10:24)
[2020-05-22] MEDS: Citalopram 20 MG TAB PO SCH (20:08)
[2020-05-22] MEDS: Latanoprost 0.005% Ophth Soln 2.5 ml Bottle EA EYE SCH (20:08)
[2020-05-23] MEDS ORDERED: Zolpidem Tartrate 5 MG TAB PO PRN (04:04)
[2020-05-23] MEDS: Sodium Chloride 0.45% 1,000 ML IV SCH ×3 (04:17→20:49)
[2020-05-23] MEDS: Aspirin Chewable 81 MG TAB PO SCH (07:33)
[2020-05-23] MEDS: Brimonidine Tartrate 0.2% Ophth Soln 5 ml Bottle EA EYE SCH ×2 (07:33→20:52)
[2020-05-23] MEDS: Amiodarone 200 MG TAB PO SCH (07:33)
[2020-05-23 08:58] LABS: #Eosinphils 0.3 thou/uL (0.0-0.7); #Lymphocytes 0.8 thou/uL (1.20-3.40); #Monocytes 0.5 thou/uL (0.11-0.59); #Neutrophils 3.9 thou/uL (1.40-6.50); %Basophils 0.4 % (0.0-1.0); %Eosinophils 5.5 % (0.0-10.0); %Lymphocytes 14.1 % (21.0-51.0); %Monocytes 9.3 % (0.0-10.0); %Neutrophils 70.7 % (42.0-75.0); Hemoglobin 13.2 g/dL (14.0-18.0); Mean Corpuscular HGB CONC 34.5 g/dL (32.0-36.0); Mean Corpuscular Hemoglobin 32.8 pg (27.0-31.0); Mean Corpuscular Volume 95.2 fL (78.0-98.0); Platelet Count 132 thou/uL (130-400); RBC Distribution Width 13.2 % (11.5-14.5); Red Blood Cell (RBC) Count 4.02 mill/uL (4.70-6.10); White Blood Cell (WBC) Count 5.5 thou/uL (4.8-10.8)
[2020-05-23 09:19] LABS: Anion Gap 13 mmol/L (10-20); BUN (Urea Nitrogen) 33 mg/dL (8.4-25.7); Calc. Creatinine Clearance 47 mL/min (70-130); Calcium 8.5 mg/dL (7.8-10.44); Carbon Dioxide 21 mmol/L (23-31); Chloride 105 mmol/L (98-107); Glucose 141 mg/dL (83-110); Potassium 4.5 mmol/L (3.5-5.1); Sodium 134 mmol/L (136-145)
[2020-05-23] MEDS: Citalopram 20 MG TAB PO SCH (20:53)
[2020-05-23] MEDS ORDERED: Zolpidem Tartrate 5 MG TAB PO SCH (21:00)
[2020-05-23] MEDS: Latanoprost 0.005% Ophth Soln 2.5 ml Bottle EA EYE SCH (21:50)
[2020-05-24] MEDS: Sodium Chloride 0.45% 1,000 ML IV SCH (05:10)
[2020-05-24 05:21] LABS: #Eosinphils 0.3 thou/uL (0.0-0.7); #Lymphocytes 0.8 thou/uL (1.20-3.40); #Monocytes 0.6 thou/uL (0.11-0.59); #Neutrophils 3.1 thou/uL (1.40-6.50); %Basophils 0.8 % (0.0-1.0); %Eosinophils 5.9 % (0.0-10.0); %Lymphocytes 16.4 % (21.0-51.0); Hemoglobin 13.2 g/dL (14.0-18.0); Mean Corpuscular HGB CONC 33.9 g/dL (32.0-36.0); Mean Corpuscular Hemoglobin 32.3 pg (27.0-31.0); Mean Corpuscular Volume 95.4 fL (78.0-98.0); Platelet Count 131 thou/uL (130-400); RBC Distribution Width 13.3 % (11.5-14.5); White Blood Cell (WBC) Count 4.8 thou/uL (4.8-10.8)
[2020-05-24 05:29] LABS: Hemoglobin A1c 5.9 % (4.0-6.0)
[2020-05-24 05:46] LABS: Anion Gap 13 mmol/L (10-20); BUN (Urea Nitrogen) 28 mg/dL (8.4-25.7); Calc. Creatinine Clearance 54 mL/min (70-130); Calcium 8.6 mg/dL (7.8-10.44); Carbon Dioxide 22 mmol/L (23-31); Chloride 105 mmol/L (98-107); Glucose 105 mg/dL (83-110); Potassium 4.6 mmol/L (3.5-5.1); Sodium 135 mmol/L (136-145)
[2020-05-24 08:21] VITALS: BP 136/83; TEMP 97.4
[2020-05-24] MEDS: Aspirin Chewable 81 MG TAB PO SCH (09:08)
[2020-05-24] MEDS: Amiodarone 200 MG TAB PO SCH (09:08)
[2020-05-24] MEDS: Brimonidine Tartrate 0.2% Ophth Soln 5 ml Bottle EA EYE SCH (09:08)
[2020-05-24 09:19] LABS: Hemoglobin 13.1 g/dL (14.0-18.0); Platelet Count 130 thou/uL (130-400)
== END 2020-05-24 11:15 | disposition home or self-care (01) | DRG 310 ==
LOC: ERS 14:47 → 2SW 16:31 → OBSVTOIN 05-22 16:45
PROVIDERS: ADMIT Specialist; ATTEND Specialist
DX: R00.1 Bradycardia, unspecified (principal); R42 Dizziness and giddiness; I48.91 Unspecified atrial fibrillation; E03.9 Hypothyroidism, unspecified; E11.9 Type 2 diabetes mellitus without complications; E78.5 Hyperlipidemia, unspecified; K21.9 Gastro-esophageal reflux disease without esophagitis; I10 Essential (primary) hypertension; Z85.828 Personal history of other malignant neoplasm of skin; F41.9 Anxiety disorder, unspecified; F32.9 Major depressive disorder, single episode, unspecified; E55.9 Vitamin D deficiency, unspecified; K59.09 Other constipation; F17.220 Nicotine dependence, chewing tobacco, uncomplicated; I25.10 Atherosclerotic heart disease of native coronary artery without angina pectoris; N28.9 Disorder of kidney and ureter, unspecified; I95.9 Hypotension, unspecified; R07.9 Chest pain, unspecified; Z79.82 Long term (current) use of aspirin; Z79.84 Long term (current) use of oral hypoglycemic drugs; Z90.49 Acquired absence of other specified parts of digestive tract
CPT/HCPCS: 36415; 36416; 70450; 70551; 71045; 78452; 80048; 80053; 80061; 81001; 82533; 82565; 83036; 84443; 84484; 85014; 85018; 85025; 85049; 87635; 93005; 93017; 93880; 95712; 95819; 95957; A9500; G0378; J2785; U0003; U0005

== ENCOUNTER 2020-07-02 07:38 | Inpatient (IN) | payer MEDICARE, MEDICAID ==
[2020-07-02] MEDS: Acetaminophen/Codeine 30-300mg Tablet PO PRN ×2 (10:46→18:03)
[2020-07-02] MEDS: Sodium Chloride 0.9% 1,000 ML IV SCH ×2 (10:46→20:57)
[2020-07-02 11:21] VITALS: BMI 33.2
[2020-07-02] MEDS: Metoprolol Tartrate 25 MG TAB PO SCH (20:47)
[2020-07-02] MEDS: Acetaminophen 325 MG TAB PO PRN (20:54)
[2020-07-02] MEDS: Docusate 100 MG CAP PO SCH (20:54)
[2020-07-02] MEDS: Latanoprost 0.005% Ophth Soln 2.5 ml Bottle EA EYE SCH (20:55)
[2020-07-02] MEDS: Zolpidem Tartrate 5 MG TAB PO PRN (20:55)
[2020-07-03 00:28] LABS: SARS-CoV-2 PCR by NAA Not Detected (NotDetected)
[2020-07-03] MEDS: cefTRIAXone\\ROCEPHIN 1 GM in Sodium Chloride 0.9% 100 ML IVPB SCH (05:37)
[2020-07-03] MEDS: Acetaminophen 325 MG TAB PO PRN (05:39)
[2020-07-03 06:59] LABS: Hemoglobin A1c 5.5 % (4.0-6.0)
[2020-07-03 07:18] LABS: Mean Corpuscular HGB CONC 34.3 g/dL (32.0-36.0); Mean Corpuscular Hemoglobin 33.6 pg (27.0-31.0); Mean Corpuscular Volume 98.2 fL (78.0-98.0); RBC Distribution Width 13.1 % (11.5-14.5); Red Blood Cell (RBC) Count 4.16 mill/uL (4.70-6.10); White Blood Cell (WBC) Count 5.6 thou/uL (4.8-10.8)
[2020-07-03 07:22] LABS: Anion Gap 12 mmol/L (10-20); BUN (Urea Nitrogen) 21 mg/dL (8.4-25.7); Calc. Creatinine Clearance 51 mL/min (70-130); Calcium 8.4 mg/dL (7.8-10.44); Carbon Dioxide 21 mmol/L (23-31); Cardiac Risk 2.7 (Less than 4.5); Chloride 108 mmol/L (98-107); Cholesterol 101 mg/dl (< 200 Desired); Glucose 108 mg/dL (83-110); HDL Cholesterol 37 mg/dL (>60 Neg Risk); LDL Cholesterol, Calculated 48 mg/dL; Potassium 4.3 mmol/L (3.5-5.1); Sodium 137 mmol/L (136-145); Triglycerides 78 mg/dL (Less than 150)
[2020-07-03 08:51] LABS: Band 43 % (5-11); Eosinophils 3 % (0-10); Lymphocytes 13 % (21-51); MDiff Complete? YES; Mean Platelet Volume 7.9 fL (7.4-10.4); Monocytes 8 % (0-10); Neutrophil 33 % (42-75); Platelet Count 115 thou/uL (130-400); Platelet Morphology Comment Appears Decreased; Polychromasia SLIGHT = 2-3 cells (100X) (0-2/hpf); Reflex for Review?? NO
[2020-07-03] MEDS: Amiodarone 200 MG TAB PO SCH (09:06)
[2020-07-03] MEDS: Aspirin Chewable 81 MG TAB PO SCH (09:07)
[2020-07-03] MEDS: Metoprolol Tartrate 25 MG TAB PO SCH ×2 (09:07→20:40)
[2020-07-03] MEDS: Empagliflozin 10 MG TAB PO SCH (09:07)
[2020-07-03] MEDS: Docusate 100 MG CAP PO SCH ×2 (09:07→20:39)
[2020-07-03] MEDS: Sodium Chloride 0.9% 1,000 ML IV SCH (09:08)
[2020-07-03] MEDS: Acetaminophen/Codeine 30-300mg Tablet PO PRN ×3 (09:11→20:40)
[2020-07-03] MEDS: Latanoprost 0.005% Ophth Soln 2.5 ml Bottle EA EYE SCH (20:41)
[2020-07-03] MEDS: Brimonidine Tartrate 0.2% Ophth Soln 5 ml Bottle EA EYE SCH (21:34)
[2020-07-03] MEDS: Zolpidem Tartrate 5 MG TAB PO PRN (21:35)
[2020-07-04] MEDS: Sodium Chloride 0.9% 1,000 ML IV SCH ×2 (05:06→17:42)
[2020-07-04] MEDS: cefTRIAXone\\ROCEPHIN 1 GM in Sodium Chloride 0.9% 100 ML IVPB SCH (05:06)
[2020-07-04 07:06] LABS: #Eosinphils 0.2 thou/uL (0.0-0.7); #Lymphocytes 0.7 thou/uL (1.20-3.40); #Monocytes 0.6 thou/uL (0.11-0.59); #Neutrophils 4.8 thou/uL (1.40-6.50); %Lymphocytes 11.6 % (21.0-51.0); %Neutrophils 75.4 % (42.0-75.0); Mean Corpuscular HGB CONC 32.6 g/dL (32.0-36.0); Mean Corpuscular Hemoglobin 32.4 pg (27.0-31.0); Mean Corpuscular Volume 99.3 fL (78.0-98.0); Platelet Count 105 thou/uL (130-400); RBC Distribution Width 13.1 % (11.5-14.5); Red Blood Cell (RBC) Count 4.02 mill/uL (4.70-6.10); White Blood Cell (WBC) Count 6.3 thou/uL (4.8-10.8)
[2020-07-04 07:17] LABS: Anion Gap 13 mmol/L (10-20); BUN (Urea Nitrogen) 22 mg/dL (8.4-25.7); Calc. Creatinine Clearance 56 mL/min (70-130); Calcium 8.3 mg/dL (7.8-10.44); Carbon Dioxide 20 mmol/L (23-31); Chloride 108 mmol/L (98-107); Glucose 90 mg/dL (83-110); Potassium 4.4 mmol/L (3.5-5.1); Sodium 137 mmol/L (136-145)
[2020-07-04] MEDS: Metoprolol Tartrate 25 MG TAB PO SCH ×2 (08:38→20:42)
[2020-07-04] MEDS: Empagliflozin 10 MG TAB PO SCH (08:38)
[2020-07-04] MEDS: Amiodarone 200 MG TAB PO SCH (08:38)
[2020-07-04] MEDS: Aspirin Chewable 81 MG TAB PO SCH (08:38)
[2020-07-04] MEDS: Brimonidine Tartrate 0.2% Ophth Soln 5 ml Bottle EA EYE SCH ×2 (08:38→20:41)
[2020-07-04] MEDS: Docusate 100 MG CAP PO SCH ×2 (08:38→20:42)
[2020-07-04] MEDS: Acetaminophen/Codeine 30-300mg Tablet PO PRN ×2 (14:55→20:47)
[2020-07-04] MEDS: Latanoprost 0.005% Ophth Soln 2.5 ml Bottle EA EYE SCH (20:41)
[2020-07-04] MEDS: Zolpidem Tartrate 5 MG TAB PO PRN (20:42)
[2020-07-05] MEDS: Sodium Chloride 0.9% 1,000 ML IV SCH ×3 (05:35→20:55)
[2020-07-05] MEDS: cefTRIAXone\\ROCEPHIN 1 GM in Sodium Chloride 0.9% 100 ML IVPB SCH (05:35)
[2020-07-05 07:09] LABS: #Eosinphils 0.3 thou/uL (0.0-0.7); #Lymphocytes 0.7 thou/uL (1.20-3.40); #Monocytes 0.5 thou/uL (0.11-0.59); #Neutrophils 3.9 thou/uL (1.40-6.50); %Basophils 0.6 % (0.0-1.0); %Eosinophils 5.4 % (0.0-10.0); %Lymphocytes 12.9 % (21.0-51.0); %Monocytes 8.4 % (0.0-10.0); %Neutrophils 72.7 % (42.0-75.0); Hemoglobin 13.1 g/dL (14.0-18.0); Mean Corpuscular Hemoglobin 32.3 pg (27.0-31.0); Mean Platelet Volume 8.1 fL (7.4-10.4); Platelet Count 109 thou/uL (130-400); RBC Distribution Width 12.9 % (11.5-14.5); Red Blood Cell (RBC) Count 4.05 mill/uL (4.70-6.10); White Blood Cell (WBC) Count 5.4 thou/uL (4.8-10.8)
[2020-07-05 07:21] LABS: Anion Gap 12 mmol/L (10-20); BUN (Urea Nitrogen) 23 mg/dL (8.4-25.7); Calc. Creatinine Clearance 60 mL/min (70-130); Calcium 8.3 mg/dL (7.8-10.44); Carbon Dioxide 21 mmol/L (23-31); Chloride 108 mmol/L (98-107); Glucose 92 mg/dL (83-110); Potassium 4.2 mmol/L (3.5-5.1); Sodium 137 mmol/L (136-145)
[2020-07-05] MEDS: Aspirin Chewable 81 MG TAB PO SCH (09:18)
[2020-07-05] MEDS: Docusate 100 MG CAP PO SCH ×2 (09:18→20:50)
[2020-07-05] MEDS: Metoprolol Tartrate 25 MG TAB PO SCH ×2 (09:18→20:49)
[2020-07-05] MEDS: Amiodarone 200 MG TAB PO SCH (09:18)
[2020-07-05] MEDS: Empagliflozin 10 MG TAB PO SCH (09:18)
[2020-07-05] MEDS: Brimonidine Tartrate 0.2% Ophth Soln 5 ml Bottle EA EYE SCH ×2 (09:18→20:49)
[2020-07-05] MEDS: Cefdinir 300 MG CAP PO SCH ×2 (09:46→20:49)
[2020-07-05] MEDS: Acetaminophen/Codeine 30-300mg Tablet PO PRN ×2 (11:54→17:54)
[2020-07-05] MEDS: Zolpidem Tartrate 5 MG TAB PO PRN (20:49)
[2020-07-05] MEDS: Latanoprost 0.005% Ophth Soln 2.5 ml Bottle EA EYE SCH (21:20)
[2020-07-06] MEDS: Acetaminophen/Codeine 30-300mg Tablet PO PRN (05:26)
[2020-07-06 07:30] VITALS: BP 127/81; TEMP 97.9
[2020-07-06] MEDS: Empagliflozin 10 MG TAB PO SCH (07:49)
[2020-07-06] MEDS: Aspirin Chewable 81 MG TAB PO SCH (07:50)
[2020-07-06] MEDS: Docusate 100 MG CAP PO SCH (07:50)
[2020-07-06] MEDS: Cefdinir 300 MG CAP PO SCH (07:50)
[2020-07-06] MEDS: Metoprolol Tartrate 25 MG TAB PO SCH (07:50)
[2020-07-06] MEDS: Amiodarone 200 MG TAB PO SCH (07:50)
[2020-07-06] MEDS: Brimonidine Tartrate 0.2% Ophth Soln 5 ml Bottle EA EYE SCH (07:50)
[2020-07-06 07:57] LABS: Anion Gap 12 mmol/L (10-20); BUN (Urea Nitrogen) 22 mg/dL (8.4-25.7); Calc. Creatinine Clearance 64 mL/min (70-130); Calcium 8.5 mg/dL (7.8-10.44); Carbon Dioxide 23 mmol/L (23-31); Chloride 107 mmol/L (98-107); Glucose 103 mg/dL (83-110); Potassium 4.1 mmol/L (3.5-5.1); Sodium 138 mmol/L (136-145)
[2020-07-06 08:23] LABS: Band 2 % (5-11); Eosinophils 5 % (0-10); Hemoglobin 13.7 g/dL (14.0-18.0); Lymphocytes 13 % (21-51); MDiff Complete? YES; Mean Corpuscular HGB CONC 33.6 g/dL (32.0-36.0); Mean Corpuscular Volume 98.1 fL (78.0-98.0); Mean Platelet Volume 7.6 fL (7.4-10.4); Metamyelocyte 3 % (0-0); Monocytes 4 % (0-10); Neutrophil 70 % (42-75); Nucleated RBC 1 % (0); Platelet Count 123 thou/uL (130-400); Platelet Morphology Comment Appears Decreased; Polychromasia SLIGHT = 2-3 cells (100X) (0-2/hpf); RBC Distribution Width 12.9 % (11.5-14.5); Reactive Lymphocytes 1 % (0-10); Red Blood Cell (RBC) Count 4.16 mill/uL (4.70-6.10); White Blood Cell (WBC) Count 5.1 thou/uL (4.8-10.8)
[2020-07-06] MEDS ORDERED: Acetaminophen/Codeine 30-300mg Tablet PO PRN (08:37)
[2020-07-06] MEDS ORDERED: Zolpidem Tartrate 5 MG TAB PO SCH (21:00)
[2020-07-07] MEDS ORDERED: Levothyroxine Sodium 50 MCG TAB PO SCH (06:00)
[2020-07-07] MEDS ORDERED: Aspirin 81 mg Enteric Coated Tablet PO SCH (09:00)
== END 2020-07-06 11:05 | disposition home or self-care (01) | DRG 698 ==
LOC: T4-A 07:38
PROVIDERS: ADMIT Specialist; ATTEND Specialist
DX: T83.511A Infection and inflammatory reaction due to indwelling urethral catheter, initial encounter (principal); A41.9 Sepsis, unspecified organism; N12 Tubulo-interstitial nephritis, not specified as acute or chronic; E03.9 Hypothyroidism, unspecified; E78.5 Hyperlipidemia, unspecified; E11.9 Type 2 diabetes mellitus without complications; I10 Essential (primary) hypertension; I48.0 Paroxysmal atrial fibrillation; K21.9 Gastro-esophageal reflux disease without esophagitis; K59.09 Other constipation; E55.9 Vitamin D deficiency, unspecified; F41.9 Anxiety disorder, unspecified; F32.9 Major depressive disorder, single episode, unspecified; Z90.49 Acquired absence of other specified parts of digestive tract; F17.210 Nicotine dependence, cigarettes, uncomplicated; Z79.82 Long term (current) use of aspirin; N31.2 Flaccid neuropathic bladder, not elsewhere classified; Y84.6 Urinary catheterization as the cause of abnormal reaction of the patient, or of later complication, without mention of misadventure at the time of the procedure
CPT/HCPCS: 36415; 36416; 51701; 74176; 80048; 80053; 80061; 81003; 81015; 83036; 83605; 84443; 85025; 87040; 87086; 87635; 93005; 96365; 96374; 96375; J0696; J2270; J2405; J3490; U0003; U0005

== ENCOUNTER 2020-07-13 15:22 | Emergency (ER) | payer MEDICARE, MEDICAID ==
[2020-07-13 16:23] LABS: Bilirubin Negative (Negative); Blood, Urine Negative (Negative); Clarity Clear (Clear); Glucose, Urine (Dipstick) Greater than 1000 mg/dL (Negative); Ketone, Urine Negative (Negative); Leukocyte Negative Leu/uL (Negative); Nitrite Negative (Negative); Protein, Urine (Dipstick) Negative (Neg-Trace); Specific Gravity, Urine 1.012 (1.002-1.036); Urobilinogen Normal mg/dL (Less than 2); pH, Urine 6.5 (5.0-9.0)
[2020-07-13 16:33] LABS: #Eosinphils 0.2 thou/uL (0.0-0.7); #Lymphocytes 0.9 thou/uL (1.20-3.40); #Monocytes 0.5 thou/uL (0.11-0.59); #Neutrophils 5.1 thou/uL (1.40-6.50); %Basophils 0.2 % (0.0-1.0); %Eosinophils 3.5 % (0.0-10.0); %Lymphocytes 13.1 % (21.0-51.0); %Monocytes 7.1 % (0.0-10.0); %Neutrophils 76.1 % (42.0-75.0); Hemoglobin 14.9 g/dL (14.0-18.0); Mean Corpuscular HGB CONC 33.6 g/dL (32.0-36.0); Mean Corpuscular Hemoglobin 32.6 pg (27.0-31.0); Mean Corpuscular Volume 97.2 fL (78.0-98.0); Platelet Count 210 thou/uL (130-400); RBC Distribution Width 13.1 % (11.5-14.5); Red Blood Cell (RBC) Count 4.55 mill/uL (4.70-6.10); White Blood Cell (WBC) Count 6.7 thou/uL (4.8-10.8)
[2020-07-13 17:20] LABS: ALT (SGPT) 28 U/L (8-55); AST (SGOT) 31 U/L (5-34); Albumin 3.6 g/dL (3.4-4.8); Alkaline Phosphatase 68 U/L (40-110); Anion Gap 15 mmol/L (10-20); BUN (Urea Nitrogen) 26 mg/dL (8.4-25.7); Bilirubin, Total 0.5 mg/dL (0.2-1.2); Calc. Creatinine Clearance 0 mL/min (70-130); Calcium 9.2 mg/dL (7.8-10.44); Carbon Dioxide 21 mmol/L (23-31); Chloride 104 mmol/L (98-107); Globulin 3.7 g/dL (2.4-3.5); Glucose 101 mg/dL (83-110); Potassium 5.4 mmol/L (3.5-5.1); Protein, Total 7.3 g/dL (5.8-8.1); Sodium 135 mmol/L (136-145)
[2020-07-13 19:44] LABS: Troponin I Less than 0.010 ng/mL (< 0.028)
== END 2020-07-13 20:16 | disposition home or self-care (01) ==
LOC: ERS 15:22
DX: M25.512 Pain in left shoulder (principal); M79.632 Pain in left forearm; E11.9 Type 2 diabetes mellitus without complications; E03.9 Hypothyroidism, unspecified; K76.0 Fatty (change of) liver, not elsewhere classified; E78.5 Hyperlipidemia, unspecified; I47.1 Supraventricular tachycardia; I10 Essential (primary) hypertension; I48.91 Unspecified atrial fibrillation; M19.90 Unspecified osteoarthritis, unspecified site; F17.220 Nicotine dependence, chewing tobacco, uncomplicated; Z85.828 Personal history of other malignant neoplasm of skin; Z79.82 Long term (current) use of aspirin; Z79.899 Other long term (current) drug therapy
CPT/HCPCS: 36415; 51701; 72040; 80053; 81003; 82010; 83880; 84484; 85025; 93005